=== PATIENT | female | born 1960 | race Two or more races ===

== ENCOUNTER 2020-02-20 07:22 | Emergency (ER) | payer MEDICAID ==
[~2020-02-20] VITALS: Ht 160 cm; Wt 81.6 kg
[2020-02-20 07:39] VITALS: BP 136/85
[2020-02-20] MEDS ORDERED: LIDOCAINE 1% HCL (LOCAL ANESTH.) INJ 20ML MDV IJ ONE (07:45)
[2020-02-20] MEDS ORDERED: ACETAMINOPHEN 325 MG TAB PO ONE (08:15)
== END 2020-02-20 08:44 | disposition home or self-care (01) ==
LOC: ER 07:22
DX: S81.811A Laceration without foreign body, right lower leg, initial encounter (principal); M19.90 Unspecified osteoarthritis, unspecified site; I10 Essential (primary) hypertension; W22.8XXA Striking against or struck by other objects, initial encounter; Y93.89 Activity, other specified; Y92.89 Other specified places as the place of occurrence of the external cause; Y99.8 Other external cause status
CPT/HCPCS: 12002; 73590; 99283; J2001

== ENCOUNTER 2020-02-26 08:57 | Emergency (ER) | payer MEDICAID ==
[~2020-02-26] VITALS: Ht 160 cm; Wt 81.6 kg
[2020-02-26 09:22] VITALS: BP 130/82
== END 2020-02-26 11:07 | disposition home or self-care (01) ==
LOC: ER 08:57
DX: S81.811D Laceration without foreign body, right lower leg, subsequent encounter (principal); X58.XXXD Exposure to other specified factors, subsequent encounter

== ENCOUNTER 2020-03-10 08:50 | Emergency (ER) | payer MEDICAID ==
[~2020-03-10] VITALS: Ht 160 cm; Wt 83.0 kg
[2020-03-10 09:06] VITALS: BP 123/85
== END 2020-03-10 09:34 | disposition home or self-care (01) ==
LOC: ER 08:50
DX: S81.811D Laceration without foreign body, right lower leg, subsequent encounter (principal); I10 Essential (primary) hypertension; X58.XXXD Exposure to other specified factors, subsequent encounter

== ENCOUNTER 2022-02-01 06:02 | Inpatient (IN) | payer MEDICAID ==
[~2022-02-01] VITALS: Ht 157.5 cm; Wt 77.1 kg
[2022-02-01 06:59] LABS: Basophils # (auto) 0 10 ^3/uL (0-0.2); Basophils % (auto) 0.4 % (0.0-2.0); Eosinophils # (auto) 0 10 ^3/uL (0-0.8); Eosinophils % (auto) 0.6 % (0.0-7.0); Lymphocytes # (auto) 0.5 10 ^3/uL (0.4-5.4); Monocytes # (auto) 0.7 10 ^3/uL (0-1.3); Neutrophils # (auto) 4.1 10 ^3/uL (1.6-8.6); Nucleated Red Blood Cells % 0.1 %; Red Cell Distribution Width 16.9 % (11.8-14.3)
[2022-02-01 07:01] LABS: Hematocrit 38.2 % (36.0-46.0); Hemoglobin 12.8 g/dL (12.2-16.2); Lymphocytes % (auto) 9.1 % (10.0-50.0); Mean Corpuscular Hemoglobin 26.7 pg (28.0-32.0); Mean Corpuscular Hgb Conc. 33.6 g/dL (32.0-36.0); Mean Corpuscular Volume 79.6 fL (80.0-100.0); Monocytes % (auto) 13.3 % (0.0-12.0); Neutrophils % (auto) 76.6 % (37.0-80.0); White Blood Cell 5.4 10^3/uL (4.4-10.8)
[2022-02-01 07:14] LABS: INR 1.05 (0.9-1.15); Partial Thromboplastin Time 28.3 sec (23.6-33.0)
[2022-02-01 07:26] LABS: CRP High Sensitivity 10.7 mg/dL (< 0.3)
[2022-02-01 08:12] LABS: Albumin 2.8 g/dL (3.4-5.0); Calcium 8.6 mg/dL (8.5-10.1)
[2022-02-01 08:15] LABS: Bilirubin, Total 0.4 mg/dL (0.2-1.0); Total Protein 6.6 g/dL (6.4-8.2)
[2022-02-01 08:17] LABS: Potassium 2.8 mmol/L (3.5-5.1)
[2022-02-01] MEDS ORDERED: POTASSIUM EFFERVESENT TAB 25 MEQ PO ONE (08:45)
[2022-02-01] MEDS ORDERED: SOD CHL 0.9%/ KCL 20MEQ 1,000 ML IV ONE (08:45)
[2022-02-01] MEDS ORDERED: IOHEXOL 300 MG/ML 100ML BOTTLE IJ ONE (08:47)
[2022-02-01 09:49] LABS: Urine Bacteria NONE SEEN /hpf (None Seen); Urine Blood 1+ /uL (Negative); Urine Mucus FEW (None Seen); Urine WBC 2 /hpf (0 - 5)
[2022-02-01 10:12] LABS: Urine Specific Gravity 1.355 (1.001-1.035)
[2022-02-01] MEDS ORDERED: ONDANSETRON HCL 4 MG/2 ML VIAL IV ONE ×2 (11:30→15:15)
[2022-02-01] MEDS ORDERED: MORPHINE SULFATE INJ 2 MG/ml SYRG IV ONE (11:30)
[2022-02-01] MEDS ORDERED: cefTRIAXone 1GM/50ML D5W 50 ML IV ONE (11:30)
[2022-02-01] MEDS ORDERED: IBUP400T23 PO (14:21)
[2022-02-01] MEDS ORDERED: GABA300C10 PO (14:21)
[2022-02-01] MEDS ORDERED: METH500T22 PO (14:21)
[2022-02-01] MEDS ORDERED: NORT25CA PO (14:21)
[2022-02-01] MEDS ORDERED: metroNIDAZOLE 500MG/100ML 100 ML IV ONE (14:45)
[2022-02-01] MEDS ORDERED: HYDROcodone-ACET 5/325MG TAB PO PRN (15:30)
[2022-02-01] MEDS ORDERED: MORPHINE SULFATE INJ 2 MG/ml SYRG IV PRN (15:30)
[2022-02-01] MEDS ORDERED: ONDANSETRON HCL 4 MG/2 ML VIAL IV PRN (15:30)
[2022-02-01] MEDS: POTASSIUM CHL 20MEQ/100ML 100 ML IV SCH ×2 (15:59→22:47)
[2022-02-01] MEDS ORDERED: MORPHINE SULFATE 4 MG/ML SYR/VIAL ONE (16:12)
[2022-02-01 18:14] LABS: Basophils # (auto) 0 10 ^3/uL (0-0.2); Eosinophils # (auto) 0 10 ^3/uL (0-0.8); Lymphocytes # (auto) 0.8 10 ^3/uL (0.4-5.4); White Blood Cell 3.9 10^3/uL (4.4-10.8)
[2022-02-01 18:15] LABS: Basophils % (auto) 1.3 % (0.0-2.0); Eosinophils % (auto) 0.9 % (0.0-7.0); Hematocrit 37.8 % (36.0-46.0); Lymphocytes % (auto) 19.5 % (10.0-50.0); Mean Corpuscular Hemoglobin 25.1 pg (28.0-32.0); Mean Corpuscular Hgb Conc. 31.6 g/dL (32.0-36.0); Mean Corpuscular Volume 79.4 fL (80.0-100.0); Monocytes # (auto) 0.7 10 ^3/uL (0-1.3); Monocytes % (auto) 17.4 % (0.0-12.0); Neutrophils # (auto) 2.4 10 ^3/uL (1.6-8.6); Neutrophils % (auto) 60.9 % (37.0-80.0); Nucleated Red Blood Cells % 0.2 %; Red Blood Cells 4.76 10^6/uL (4.0-5.20)
[2022-02-01] MEDS ORDERED: GOLYTELY 4L KIT PO ONE (18:30)
[2022-02-01] MEDS: metroNIDAZOLE 500 MG TAB PO SCH (21:25)
[2022-02-01] MEDS ORDERED: POTASSIUM CHL 20MEQ/100ML 100 ML IV SCH (22:00)
[2022-02-01] MEDS ORDERED: PANTOPRAZOLE 40 MG/10 ML VIAL INJ IV SCH (22:00)
[2022-02-01] MEDS ORDERED: TEMAZEPAM 15 MG CAP PO ONE (23:15)
[2022-02-02] MEDS ORDERED: PNEUMOCOCCAL VACC POLYS 25 MCG/0.5 ML VIAL IM ONE (01:30)
[2022-02-02 05:00] VITALS: BP 123/73
[2022-02-02 06:39] LABS: Basophils # (auto) 0 10 ^3/uL (0-0.2); Eosinophils # (auto) 0.1 10 ^3/uL (0-0.8); Neutrophils # (auto) 1.8 10 ^3/uL (1.6-8.6); Red Cell Distribution Width 17.1 % (11.8-14.3); White Blood Cell 3.7 10^3/uL (4.4-10.8)
[2022-02-02 06:45] LABS: Basophils % (auto) 0.4 % (0.0-2.0); Hematocrit 35.2 % (36.0-46.0); Hemoglobin 11.1 g/dL (12.2-16.2); Mean Corpuscular Hemoglobin 25.2 pg (28.0-32.0); Mean Corpuscular Hgb Conc. 31.5 g/dL (32.0-36.0); Neutrophils % (auto) 48.3 % (37.0-80.0); Nucleated Red Blood Cells % 0.2 %
[2022-02-02 06:47] LABS: Lymphocytes % (auto) 31.6 % (10.0-50.0); Monocytes % (auto) 17.7 % (0.0-12.0)
[2022-02-02 06:48] LABS: Lymphocytes # (auto) 1.4 10 ^3/uL (0.4-5.4); Monocytes # (auto) 0.5 10 ^3/uL (0-1.3)
[2022-02-02] MEDS: metroNIDAZOLE 500 MG TAB PO SCH ×2 (07:21→15:42)
[2022-02-02] MEDS ORDERED: LIDOCAINE VISCOUS 2% 15ML UD ONE (07:31)
[2022-02-02] MEDS ORDERED: diphenhdrAMINE HCL 50 MG/1 ML VL ONE (07:32)
[2022-02-02 09:03] VITALS: BP 139/79
[2022-02-02] MEDS ORDERED: levoFLOXacin 500MG 100 ML IV SCH (10:00)
[2022-02-02] MEDS: MIDAZOLAM HCL 5 MG/ML-1ML VIAL ONE ×3 (10:43→10:57)
[2022-02-02] MEDS: fentaNYL CITRATE 100 MCG/2 ML VL ONE ×3 (10:43→10:57)
[2022-02-02] MEDS ORDERED: PANTOPRAZOLE 40 MG TAB PO ONE (12:15)
[2022-02-02 13:28] VITALS: BP 133/78
[2022-02-02] MEDS ORDERED: ACET325T10 PO (15:46)
[2022-02-02] MEDS ORDERED: PANT40T PO (15:46)
[2022-02-02] MEDS ORDERED: MET500T PO (15:46)
[2022-02-02] MEDS ORDERED: LEVO500T31 PO (15:46)
[2022-02-02 17:07] VITALS: BP 138/88
[2022-02-02] MEDS ORDERED: PANTOPRAZOLE 40 MG TAB PO SCH (22:00)
== END 2022-02-02 19:00 | disposition home or self-care (01) | DRG 249 ==
LOC: ER 06:02 → TELE 15:33 → TELE-EAST 19:45
PROVIDERS: ADMIT Internal Medicine; ATTEND Internal Medicine
PROC: 0DB68ZX Excision of Stomach, Via Natural or Artificial Opening Endoscopic, Diagnostic (ICD-10-PCS; principal; 2022-02-02 10:37)
PROC: 0DBN8ZX Excision of Sigmoid Colon, Via Natural or Artificial Opening Endoscopic, Diagnostic (ICD-10-PCS; 2022-02-02 10:37)
DX: K52.9 Noninfective gastroenteritis and colitis, unspecified (principal); K92.2 Gastrointestinal hemorrhage, unspecified; E11.9 Type 2 diabetes mellitus without complications; G62.9 Polyneuropathy, unspecified; Z20.822 Contact with and (suspected) exposure to COVID-19; N83.209 Unspecified ovarian cyst, unspecified side; E87.6 Hypokalemia; I10 Essential (primary) hypertension; M81.0 Age-related osteoporosis without current pathological fracture; Z79.84 Long term (current) use of oral hypoglycemic drugs
CPT/HCPCS: 36415; 43239; 45380; 71045; 74177; 80053; 81001; 82140; 82270; 83605; 83690; 83735; 83880; 84132; 84484; 85025; 85048; 85384; 85610; 85730; 86141; 86850; 86900; 86901; 87045; 87427; 93005; 96365; 96375; C9113; G0378; J0696; J1956; J2250; J2405; J3480; J3490

== ENCOUNTER 2023-01-30 07:55 | Emergency (ER) | payer MEDICAID ==
[~2023-01-30] VITALS: Ht 160 cm; Wt 70.4 kg
[~2023-01-30 07:55] MED LIST: ACET-1882 PO; GABA-1250 PO; LEVO500T31 PO; MET500T PO; METH-1181 PO; NORT25CA PO; PANT40T PO
[2023-01-30 08:00] VITALS: BP 166/85
[2023-01-30] MEDS ORDERED: IVER3TAB PO (08:33)
[2023-01-30] MEDS ORDERED: PER60TP TOP (08:33)
== END 2023-01-30 08:59 | disposition home or self-care (01) ==
LOC: ER 07:55
DX: B86 Scabies (principal); B85.2 Pediculosis, unspecified; E11.9 Type 2 diabetes mellitus without complications; I10 Essential (primary) hypertension; Z79.899 Other long term (current) drug therapy

== ENCOUNTER 2023-05-30 11:57 | Emergency (ER) | payer MEDICAID ==
[~2023-05-30] VITALS: Ht 160 cm; Wt 64.8 kg
[2023-05-30 11:57] VITALS: BP 141/87; PULSE 106; RESP 14; TEMP 98; O2SAT 97
[~2023-05-30 11:57] MED LIST changes: +IVER3TAB PO; +PER60TP TOP
[2023-05-30 13:32] LABS: Basophils # (auto) 0.1 10 ^3/uL (0-0.2); Eosinophils # (auto) 0.1 10 ^3/uL (0-0.8); Hemoglobin 9.8 g/dL (12.2-16.2); Lymphocytes # (auto) 1.3 10 ^3/uL (0.4-5.4); Monocytes # (auto) 0.5 10 ^3/uL (0-1.3); Neutrophils % (auto) 73.6 % (37.0-80.0)
[2023-05-30 13:34] LABS: Basophils % (auto) 1.5 % (0.0-2.0); Eosinophils % (auto) 0.7 % (0.0-7.0); Hematocrit 32.9 % (36.0-46.0); Lymphocytes % (auto) 17.3 % (10.0-50.0); Mean Corpuscular Hemoglobin 19.6 pg (28.0-32.0); Mean Corpuscular Hgb Conc. 29.9 g/dL (32.0-36.0); Mean Corpuscular Volume 65.6 fL (80.0-100.0); Monocytes % (auto) 6.9 % (0.0-12.0); Neutrophils # (auto) 5.6 10 ^3/uL (1.6-8.6); Red Blood Cells 5.02 10^6/uL (4.0-5.20); White Blood Cell 7.6 10^3/uL (4.4-10.8)
[2023-05-30 13:39] LABS: Chloride 103 mmol/L (98-107); Potassium 4.1 mmol/L (3.5-5.1); Sodium 135 mmol/L (136-145)
[2023-05-30 13:40] LABS: Anion Gap 10 (5-15); Carbon Dioxide 22 mmol/L (20-30)
[2023-05-30 13:41] LABS: Calcium 8.9 mg/dL (8.5-10.1)
[2023-05-30 13:45] LABS: BUN/Creatinine Ratio 17.1 (10.0-20.0); Blood Urea Nitrogen 13 mg/dL (9-23); Glucose 85 mg/dL (74-106)
[2023-05-30 13:51] LABS: INR 1.06 (0.9-1.15); Prothrombin Time 11.1 sec (9.3-11.8); Red Cell Distribution Width 21.1 % (11.8-14.3)
[2023-05-30 14:54] LABS: Platelet Estimate Adequate
[2023-05-30 14:56] LABS: Hypochromia Marked
[2023-05-30 14:57] LABS: Anisocytosis Slight
== END 2023-05-30 14:25 | disposition home or self-care (01) ==
LOC: ER 11:57
DX: S40.021A Contusion of right upper arm, initial encounter (principal); S40.022A Contusion of left upper arm, initial encounter; S80.12XA Contusion of left lower leg, initial encounter; I10 Essential (primary) hypertension; E11.9 Type 2 diabetes mellitus without complications; Z79.2 Long term (current) use of antibiotics; Z79.899 Other long term (current) drug therapy; X58.XXXA Exposure to other specified factors, initial encounter; Y93.89 Activity, other specified; Y92.89 Other specified places as the place of occurrence of the external cause; Y99.8 Other external cause status
CPT/HCPCS: 36415; 80048; 85025; 85610